=== PATIENT | male | born 1945 | race Two or more races ===

== ENCOUNTER 2017-06-21 07:00 | Inpatient (IN) | payer OTHER ==
[~2017-06-21] VITALS: Ht 167.6 cm; Wt 68.0 kg
== END 2017-06-29 10:37 | disposition home or self-care (01) | DRG 708 ==
LOC: EDSTATUS 07:00 → ADM 07:00 → SURH 06-27 05:25 → O/R 06-27 05:25 → SURH 06-27 07:00
PROVIDERS: Urology
PROC: 07TC0ZZ Resection of Pelvis Lymphatic, Open Approach (ICD-10-PCS; 2017-06-27)
PROC: 30233H0 Transfusion of Autologous Whole Blood into Peripheral Vein, Percutaneous Approach (ICD-10-PCS; 2017-06-27)
PROC: 0VT00ZZ Resection of Prostate, Open Approach (ICD-10-PCS; principal; 2017-06-27 07:00)
DX: N40.0 Benign prostatic hyperplasia without lower urinary tract symptoms (principal); I10 Essential (primary) hypertension